=== PATIENT | male | born 1995 | race Caucasian/White ===

== ENCOUNTER 2018-11-30 13:35 | Emergency (ER) | payer BC ==
[2018-11-30 14:47] VITALS: BP 87/58
--- NOTE | 2018-11-30 15:17 | UC ---
Ear Complaint HPI - HPI Summary HPI Summary: Patient states both ears have been plugged over the past week or 2. He had a upper respiratory illness approximately 3 weeks ago which has resolved. - History of Current Complaint Chief Complaint: UCEar Stated Complaint: BILATERAL EARS CONCERN Time Seen by Provider: 11/30/18 14:46 Hx Obtained From: Patient Onset/Duration: Gradual Onset Severity Initially: Mild Severity Currently: Mild Pain Intensity: 0 Aggravating Factors: Nothing Alleviating Factors: Nothing Associated Signs/Symptoms: Positive: Hearing Loss - Decreased hearing loss in right ear - Allergies/Home Medications Allergies/Adverse Reactions: Allergies Allergy/AdvReac Type Severity Reaction Status Date / Time No Known Allergies Allergy Verified 11/30/18 14:43 Home Medications: Home Medications NK [No Home Medications Reported] 11/30/18 [History Confirmed 11/30/18] PMH/Surg Hx/FS Hx/Imm Hx Previously Healthy: Yes - URI 3 weeks ago - Surgical History Surgical History: None - Social History Alcohol Use: Rare Substance Use Type: None Smoking Status (MU): Never Smoked Tobacco Review of Systems All Other Systems Reviewed And Are Negative: Yes Constitutional: Positive: Negative Skin: Positive: Negative Eyes: Positive: Negative ENT: Positive: Other - Decreased hearing mostly in right ear Respiratory: Positive: Negative Cardiovascular: Positive: Negative Gastrointestinal: Positive: Negative Genitourinary: Positive: Negative Motor: Positive: Negative Neurovascular: Positive: Negative Musculoskeletal: Positive: Negative Neurological: Positive: Negative Psychological: Positive: Negative Is Patient Immunocompromised?: No Physical Exam Triage Information Reviewed: Yes Appearance: Well-Appearing, No Pain Distress, Well-Nourished Vital Signs: Initial Vital Signs Temp 98.0 F 11/30/18 14:43 Pulse 48 11/30/18 14:43 Resp 15 11/30/18 14:43 BP 87/58 11/30/18 14:43 Pulse Ox 97 11/30/18 14:43 Vital Signs Reviewed: Yes Eye Exam: Normal ENT: Positive: TMs normal, Other - Cerumen impaction right ear. Following a successful ear lavage in the right ear, both tympanic members are pearly joe with good light reflex and good landmarks. Neck exam: Normal Neck: Positive: Supple, Nontender, No Lymphadenopathy Respiratory Exam: Normal Cardiovascular Exam: Normal Musculoskeletal Exam: Normal Neurological Exam: Normal Psychological Exam: Normal Skin Exam: Normal Ear Complaint Course/Dx - Course Course Of Treatment: He has been comfortable here. He had a successful ear lavage of the right ear. - Differential Dx/Diagnosis Differential Diagnosis/HQI/PQRI: Cerumen Impaction Provider Diagnosis: Impacted cerumen of right ear Discharge - Sign-Out/Discharge Documenting (check all that apply): Patient Departure All imaging exams completed and their final reports reviewed: No Studies - Discharge Plan Condition: Good Disposition: HOME Patient Education Materials: Cerumen Impaction (ED) Referrals: No Primary Care Phys,NOPCP [Primary Care Provider] - Additional Instructions: You can call [facility] at [phone] with assistance on status and care with a primary care provider. If you continue to have problems he can always instill earwax softening drops once a month to keep your ears clear. - Billing Disposition and Condition Condition: GOOD Disposition: Home - Attestation Statements Provider Attestation: Per institutional requirements, I have reviewed the chart, however, I was not consulted specifically or made aware of this patient by the midlevel provider. I did not personally evaluate, interact with , or disposition this patient.
== END 2018-11-30 15:39 | disposition home or self-care (01) ==
LOC: UCCORT 13:35
DX: H61.23 Impacted cerumen, bilateral (principal)
CPT/HCPCS: 99212; G0463